=== PATIENT | male | born 1990 | race Two or more races ===

== ENCOUNTER 2019-10-09 19:41 | Emergency (ER) | payer OTHER ==
[2019-10-09 19:58] VITALS: RESP 18; TEMP 98.5
[2019-10-09] MEDS ORDERED: ACETAMINOPHEN TAB 500 MG TAB PO STA (20:18)
[2019-10-09] MEDS ORDERED: DIPH,PERTUS(ACELL)TETVAC-LF 0.5 ML VIAL IM ONE (20:18)
[2019-10-09] MEDS ORDERED: IBUPROFEN 600 MG STARTER PACK 4 TAB BTL PO STA (20:18)
[2019-10-09] MEDS ORDERED: CEPHALEXIN 500MG STARTER PACK 4 CAP BTL PO STA (20:18)
[2019-10-09] MEDS ORDERED: LIDOCAINE 1% INJ 10MG/ML (20 ML MDV) SQ ONE (20:19)
--- NOTE | 2019-10-09 21:01 | XR ---
PROCEDURE: XR wrist complete RT - 4 views DATE AND TIME: 10/09/2019 8:42 PM CLINICAL INDICATION: PHH; Crush injury/laceration TECHNIQUE: Department protocol COMPARISON: None FINDINGS: There is no fracture or malalignment. There is forearm soft tissue swelling and distal forearm laceration changes laterally and posteriorly . No soft tissue emphysema. No radiopaque foreign body. IMPRESSION: Soft tissue findings
--- NOTE | 2019-10-09 21:04 | XR ---
PROCEDURE: XR forearm RT - 3V DATE AND TIME: 10/09/2019 8:42 PM CLINICAL INDICATION: PHH; Crush injury/laceration TECHNIQUE: Department protocol COMPARISON: None FINDINGS: There is no fracture or malalignment. There is forearm soft tissue swelling and distal forearm laceration changes laterally and posteriorly . No radiopaque foreign bodies. Minimal subcutaneous low density noted consistent with minimal soft t issue emphysema. IMPRESSION: Soft tissue findings as above
--- NOTE | 2019-10-09 22:12 | ED ---
Upper Extremity HPI - General Chief Complaint: Extremity Injury, Upper Stated Complaint: R Arm Injury Time Seen by Provider: 10/09/19 20:02 Source: patient Mode of arrival: ambulatory Limitations: no limitations - History of Present Illness Initial Comments: 28-year-old male patient presents the emergency department today for evaluation of right arm injury. Patient states approximately 5 hours ago he is working on a zero turn lawnmower when it fell off the [place] and landed on his right arm. Patient states he did sustain lacerations to the arm. States that the swelling and bruising worsened over the afternoon so he presented to urgent care for evaluation. They evaluated the laceration and sent him here. Patient denies any numbness or tingling to the arm or hand. Denies any pain with movement of the wrist. States his last tetanus vaccine was around 6 years ago. Denies any other injuries. Patient denies any headache, neck pain, back pain, chest pain, shortness of breath, dizziness, weakness, abdominal pain, nausea, vomiting, or difficulties with bowel movements or urination. - Related Data Previous Rx's Medication Instructions Recorded Cephalexin [Keflex] 500 mg PO Q6H #28 cap 10/09/19 Allergies Allergy/AdvReac Type Severity Reaction Status Date / Time No Known Allergies Allergy Verified 10/09/19 19:58 Review of Systems ROS Statement: Those systems with pertinent positive or pertinent negative responses have been documented in the HPI. ROS Other: All systems not noted in ROS Statement are negative. Past Medical History Past Medical History: No Reported History History of Any Multi-Drug Resistant Organisms: None Reported Past Surgical History: No Surgical Hx Reported Past Psychological History: No Psychological Hx Reported Past Alcohol Use History: Occasional Past Drug Use History: None Reported General Exam Limitations: no limitations General appearance: alert, in no apparent distress, other (This is a well- developed, well-nourished adult male patient in no acute distress. Vital signs upon presentation are temperature 98.5F, pulse 101, respirations 18, blood pressure 153/77, pulse ox 100% on room air.) Respiratory exam: Present: normal lung sounds bilaterally. Absent: respiratory distress, wheezes, rales, rhonchi, stridor Cardiovascular Exam: Present: regular rate, normal rhythm, normal heart sounds. Absent: systolic murmur, diastolic murmur, rubs, gallop, clicks Extremities exam: Present: full ROM, tenderness (Right distal forearm), normal capillary refill, other (There are three lacerations noted over the dorsal forearm. The first laceration is 2cm. Second laceration is 4cm, gaping, with exposed adipose tissue. Third laceration is 3cm. No active bleeding. Consider arm is pink, warm, dry. Cap refills is in 3 seconds. Radial pulses 2+ and equal bilaterally.). Absent: pedal edema, joint swelling, calf tenderness Neurological exam: Present: alert, oriented X3, CN II-XII intact Psychiatric exam: Present: normal affect, normal mood Skin exam: Present: warm, dry, intact, normal color. Absent: rash Course Vital Signs 10/09/19 10/09/19 19:54 22:25 Temperature 98.5 F Pulse Rate 101 H 89 Respiratory 18 18 Rate Blood Pressure 153/77 140/79 O2 Sat by Pulse 100 100 Oximetry Procedures - Laceration Laceration #1 Consent Obtained: verbal consent Indication: laceration Site: upper extremity (Forearm) Size (cm): 2 Description: linear Depth: simple, single layer Anesthetic Used: lidocaine 1% Anesthesia Technique: local infiltration Amount (mls): 2 Pre-repair: irrigated extensively Type of Sutures: nylon Size of Sutures: 5-0 Number of Sutures: 2 Technique: simple, interrupted Patient Tolerated Procedure: well, no complications Laceration #2 Consent Obtained: verbal consent Indication: laceration Site: upper extremity (Right forearm) Size (cm): 4 Description: linear Depth: simple, single layer Anesthetic Used: lidocaine 1% Anesthesia Technique: local infiltration Amount (mls): 5 Pre-repair: irrigated extensively Type of Sutures: nylon Size of Sutures: 5-0 Number of Sutures: 7 Technique: simple, interrupted (5), horizontal mattress (2) Patient Tolerated Procedure: well, no complications Laceration #3 Consent Obtained: verbal consent Indication: laceration Site: upper extremity Size (cm): 3 Description: linear Depth: simple, single layer Anesthetic Used: lidocaine 1% Anesthesia Technique: local infiltration Amount (mls): 3 Pre-repair: irrigated extensively Type of Sutures: nylon Size of Sutures: 5-0 Number of Sutures: 3 Technique: simple, interrupted Patient Tolerated Procedure: well, no complications Medical Decision Making - Medical Decision Making 28-year-old male patient presented to the emergency department today for evalu ation of lacerations and crush injury to the right forearm. Physical examination did reveal soft tissue swelling, ecchymosis, and 3 lacerations to the right dorsal forearm. X-rays of the wrist and forearm were obtained and were negative. Lacerations were cleaned and repaired as documented. He was updated on his tetanus vaccine. He was started on Keflex. Patient was educated regarding wound care and signs or symptoms of infection. He is educated regarding rest, ice, elevation. He is instructed to follow up with his primary care physician for recheck in 1-2 days. He is instructed to have repeat x-rays performed in 7-10 days if pain symptoms persist. Return parameters were discussed in detail. He verbalizes understanding and agrees with this plan. - Radiology Data Radiology results: report reviewed, image reviewed 3 views of the right forearm are obtained. Report was reviewed in its entirety. Impression by Dr. Kristyn Deluca shows soft tissue findings as above the 4 views of the right wrist are obtained. Report was reviewed in its entirety. Impression by Dr. Kristyn Deluca shows soft tissue swelling and distal forearm laceration changes. Disposition Clinical Impression: Laceration of right forearm, Crushing injury of right forearm, Contusion of right forearm Disposition: HOME SELF-CARE Condition: Good Instructions (If sedation given, give patient instructions): Care For Your Stitches (ED), Laceration (ED), Contusion in Adults (ED) Additional Instructions: Rest, ice, elevate the arm. Keep wound clean and dry. Cleanse twice daily with warm water and antibacterial soap. Monitor for signs or symptoms of infection including but not limited to redness, swelling, drainage of pus, fever, or chills. Complete antibiotic prescription in full. Follow-up with your primary care physician for recheck in 1-2 days. Have repeat x-rays performed in 7-10 days if pain symptoms persist. Return in 7 days to have the stitches removed. Return to the emergency department for any other new, worsening, or concerning symptoms. Prescriptions: Cephalexin [Keflex] 500 mg PO Q6H #28 cap Is patient prescribed a controlled substance at d/c from ED?: No Referrals: Lubna York MD [Primary Care Provider] - 1-2 days Time of Disposition: 22:11
[2019-10-09 22:26] VITALS: BP 140/79; PULSE 89
== END 2019-10-09 22:26 | disposition home or self-care (01) ==
LOC: EC 19:41
DX: S57.81XA Crushing injury of right forearm, initial encounter (principal); S51.811A Laceration without foreign body of right forearm, initial encounter; S50.11XA Contusion of right forearm, initial encounter; Z23 Encounter for immunization; W28.XXXA Contact with powered lawn mower, initial encounter; Y93.89 Activity, other specified
CPT/HCPCS: 73090; 73110; 90715; 99283; 12004; 90471; J2001